=== PATIENT | female | born 1930 | race Caucasian/White ===

== ENCOUNTER → 2017-06-18 | Outpatient (CLI) | payer MEDICARE, OTHER | END | disposition home or self-care (01) | LOC: KCIC MRI 14:44 | DX: M48.54XD Collapsed vertebra, not elsewhere classified, thoracic region, subsequent encounter for fracture with routine healing (principal); M43.17 Spondylolisthesis, lumbosacral region; M48.04 Spinal stenosis, thoracic region; X58.XXXD Exposure to other specified factors, subsequent encounter | CPT/HCPCS: 72146 ==

== ENCOUNTER → 2018-04-13 | Day surgery (SDC) | payer MEDICARE, OTHER ==
[~2018-04-13] MED LIST: ACET500T33 PO; AMLO5TAB7 PO; BISO5TAB2 PO; CYCL10TA2 PO; DOCU-109 PO; HYDR-3165 PO; LISI10TA2 PO; MEMA10TA PO; PREG50CA PO; PROPOFOL 20 ML IV ONE
[2018-04-13 09:17] VITALS: BP 153/67
--- NOTE | 2018-04-13 11:26 | HP ---
ADMIT DATE: UPDATE HISTORY AND PHYSICAL REFERRING PHYSICIAN: Mikel Rios M.D. REASON FOR PRESENTATION: Dysphagia. HISTORY OF PRESENT ILLNESS: This is an 87-year-old female who is here for recurrent dysphagia. Solids stick in the substernal location. Previous dilatation 4 years ago did help, mainly for solids and not for liquids. Weight and appetite are stable. There has been no heartburn or reflux. She does not use alcohol and nicotine as risk factors for reflux, but does use caffeine. She is otherwise without additional complaints. PAST MEDICAL HISTORY: Status post appendectomy, hysterectomy and hypertension. ALLERGIES: IODINE. SOCIAL HISTORY: She is retired. Does not drink or smoke. FAMILY HISTORY: Noncontributory. MEDICATIONS: Presently include Tylenol, amlodipine, bisoprolol, cyclobenzaprine, Colace and lisinopril. PHYSICAL EXAMINATION: GENERAL: Reveals a well-nourished, well-developed female, who is alert, cooperative and in no acute distress. VITAL SIGNS: She is afebrile. Pulse is 80, respirations 15. HEENT EXAMINATION: Normocephalic and atraumatic head. Pupils and extraocular muscles are not tested. Sclerae anicteric. NECK: Supple. LUNGS: Clear. CARDIOVASCULAR EXAMINATION: Reveals S1 and S2, without S3, S4 or appreciable murmur. ABDOMEN: Examination reveals soft abdomen. Normoactive bowel sounds, without appreciable hepatosplenomegaly. EXTREMITIES: Examination reveals no cyanosis, clubbing or edema. 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 Presbyesophagus malignancy, achalasia, eosinophilic esophagitis are in the differential. Therefore, recommend upper endoscopy with possible biopsy and dilatation. Risks and benefits of the procedure including risk of hemorrhage and perforation during the operation have been discussed. The patient is willing to proceed at this time. I thank Dr. Rios for allowing us to consult and participate in this patient's care. RODRIGO SCHMIDT MD DR: FRANCOIS/nati JOB#: [id number] / [id number]
== END ==
LOC: SURG 07:43
PROVIDERS: ATTEND Internal Medicine Gastroenterology
DX: K22.2 Esophageal obstruction (principal); I10 Essential (primary) hypertension; Z98.890 Other specified postprocedural states; Z90.710 Acquired absence of both cervix and uterus
CPT/HCPCS: 43235; 43450; J2704